=== PATIENT | male | born 1960 | race Caucasian/White ===

== ENCOUNTER 2016-11-29 18:06 | Emergency (ER) | payer MEDICARE, OTHER ==
[~2016-11-29 18:06] MED LIST: ATIVAN 2 MG/ML SL; ATV.5 PO; ATV1 SL; B12250T SL; BLEPH OPH; CALCIUM CITRAT1 EAC2 PO; CALCIUM W/D; CALTRA600D PO; CITRACAL PO; ENSURE ENLIV OR; Ensure PO; FERROUS SULF325 M1 PO; FESO4 PO; FOLIC PO; FORTEO SC; FORTICAL200 MG/ACT NAS; FOSAMAX + D1 TAB PO; FOSAMAX35 MG PO; FOSAMAX70 MG PO; KEPPRA XR500 MG PO; KEPPRA500 PO; KLONO1 PO; KLONO5 PO; MAGNESIUM CITR100 GM MC; MIRALAXPKT PO; Magnesium Citrate PO; NASACORTAQ NAS; NEXIUM40 PO; NULYTELY OR; NULYTELY PO; PR25 PO; REG PO; SALINE NASAL SPRAY; SELENIUM SHAMPOO TOP; T PO; TEARS NATURA OPH; TEG200 PO; TESS PO; VIMPAT100 M1 PO; VIMPAT200 M1 PO; VIMPAT200 MG PO; VITAMIN D400 UNI1 PO; ZYRTEC ALLGY10 MG PO
== END 2016-11-29 19:38 | disposition home or self-care (01) ==
LOC: ER 18:06
DX: M79.602 Pain in left arm (principal); Z88.5 Allergy status to narcotic agent; Z88.0 Allergy status to penicillin; Z88.1 Allergy status to other antibiotic agents; Z88.8 Allergy status to other drugs, medicaments and biological substances; Z79.899 Other long term (current) drug therapy
CPT/HCPCS: 73060-LT; 73080-LT; 73090-LT; 99285